=== PATIENT | female | born 1980 ===

== ENCOUNTER → 2016-10-22 | Outpatient (CLI) | payer OTHER ==
[2016-04-16 18:55] VITALS: BP 123/57
[~2016-10-22] MED LIST: AMBIEN10 MG PO; CELEXA 20MG20 MG/TA1 PO; FORTAMET1000 M1 PO; PHENERGAN 25 TA25 MG PO
== END ==
LOC: RAD 10:02 → LAB 10:02
DX: R73.09 Other abnormal glucose (principal)

== ENCOUNTER → 2016-11-01 | Outpatient (CLI) | payer OTHER ==
[2016-04-16 18:55] VITALS: BP 123/57
== END ==
LOC: RAD 15:57
DX: E11.9 Type 2 diabetes mellitus without complications (principal); E04.9 Nontoxic goiter, unspecified; Z87.898 Personal history of other specified conditions

== ENCOUNTER → 2017-01-29 | Outpatient (CLI) | payer OTHER ==
[2016-04-16 18:55] VITALS: BP 123/57
== END ==
LOC: LAB 17:11
DX: E11.9 Type 2 diabetes mellitus without complications (principal)

== ENCOUNTER → 2017-02-20 | Outpatient (CLI) | payer OTHER ==
[2016-04-16 18:55] VITALS: BP 123/57
== END ==
LOC: LAB 15:51
DX: R74.8 Abnormal levels of other serum enzymes (principal); R10.817 Generalized abdominal tenderness; K76.0 Fatty (change of) liver, not elsewhere classified

== ENCOUNTER → 2017-03-07 | Outpatient (CLI) | payer OTHER ==
[2016-04-16 18:55] VITALS: BP 123/57
== END ==
LOC: LAB 07:10
DX: R10.9 Unspecified abdominal pain (principal); R74.8 Abnormal levels of other serum enzymes

== ENCOUNTER 2017-06-25 07:44 | Emergency (ER) | payer OTHER ==
[~2017-06-25] VITALS: Ht 157.5 cm; Wt 90.0 kg
[2017-06-25 08:48] LABS: HEMATOCRIT 40.7 % (37.0-47.0); HEMOGLOBIN 11.9 g/dL (12.5-16.0); MEAN CELL VOLUME 73 fl (78-100); MEAN PLATELET VOLUME 10.6 fl (7.4-10.4); PLATELET COUNT 249 K/mm3 (130-400); RED BLOOD COUNT 5.61 M/mm3 (4.10-5.30); RED CELL DISTRIBUTION WIDTH 15.9 % (11.5-14.5); WHITE BLOOD COUNT 6.9 K/mm3 (4.8-10.8)
[2017-06-25 08:54] LABS: ALBUMIN 3.9 g/dL (3.5-5.0); BUN/CREATININE RATIO 18.3 (6.0-26.0); CALCIUM 9.3 mg/dL (8.4-10.2); POTASSIUM 4.2 mmol/L (3.6-5.0); TOTAL BILIRUBIN 0.2 mg/dL (0.2-1.3); TOTAL PROTEIN 7.3 g/dL (6.3-8.2)
[2017-06-25 08:55] LABS: MEAN CORPUSCULAR HEMOGLOBIN 21 pg (27-31); MEAN CORPUSCULAR HGB CONC 29 g/dL (33-37)
[2017-06-25 08:56] LABS: LYMPHOCYTE 30 % (20-51); MONOCYTE 9 % (3-10); NEUTROPHILS 61 % (42-75)
[2017-06-25 08:57] LABS: TARGET CELLS 1+
[2017-06-25 11:51] LABS: URINE APPEARANCE CLEAR; URINE BILIRUBIN NEGATIVE (NEGATIVE); URINE BLOOD NEGATIVE (NEGATIVE); URINE COLOR YELLOW; URINE GLUCOSE NEGATIVE (NEGATIVE); URINE KETONE NEGATIVE (NEGATIVE); URINE LEUKOCYTE ESTERASE NEGATIVE (NEGATIVE); URINE NITRATE NEGATIVE (NEGATIVE); URINE PROTEIN(semi-quant) TRACE mg/dL (NEGATIVE); URINE UROBILINOGEN NORMAL (NORMAL)
[2017-06-25 12:07] VITALS: BP 144/87
== END 2017-06-25 12:07 | disposition home or self-care (01) ==
LOC: ED 07:44
PROVIDERS: Nurse Practitioner
DX: R10.12 Left upper quadrant pain (principal); R07.9 Chest pain, unspecified; S80.02XA Contusion of left knee, initial encounter; V43.52XA Car driver injured in collision with other type car in traffic accident, initial encounter; Y92.410 Unspecified street and highway as the place of occurrence of the external cause; E11.9 Type 2 diabetes mellitus without complications; Z79.84 Long term (current) use of oral hypoglycemic drugs; I10 Essential (primary) hypertension
CPT/HCPCS: L0120; Q9967

== ENCOUNTER → 2017-07-31 | Outpatient (CLI) | payer OTHER ==
[2017-07-31 17:19] LABS: DIRECT BILIRUBIN 0.1 mg/dL (0.0-0.4); TOTAL BILIRUBIN 0.1 mg/dL (0.2-1.3); TOTAL PROTEIN 7.5 g/dL (6.3-8.2)
== END ==
LOC: LAB 16:42
PROVIDERS: Family Medicine
DX: R10.13 Epigastric pain (principal); K21.9 Gastro-esophageal reflux disease without esophagitis; K76.0 Fatty (change of) liver, not elsewhere classified; E11.9 Type 2 diabetes mellitus without complications

== ENCOUNTER → 2017-10-24 | Outpatient (CLI) | payer OTHER | LOC: LAB 16:28 | DX: E11.9 Type 2 diabetes mellitus without complications (principal); K76.0 Fatty (change of) liver, not elsewhere classified ==

== ENCOUNTER → 2018-06-29 | Outpatient (CLI) | payer SELFPAY | LOC: LAB 13:23 | DX: E11.9 Type 2 diabetes mellitus without complications (principal) ==

== ENCOUNTER → 2018-07-06 | Outpatient (CLI) | payer SELFPAY ==
[2018-07-06 15:38] LABS: ALBUMIN 4.2 g/dL (3.5-5.0); CALCIUM 9.2 mg/dL (8.4-10.2); POTASSIUM 4.3 mmol/L (3.6-5.0); TOTAL BILIRUBIN 0.3 mg/dL (0.2-1.3); TOTAL PROTEIN 7.3 g/dL (6.3-8.2)
== END ==
LOC: LAB 15:02
PROVIDERS: Family Medicine
DX: E11.9 Type 2 diabetes mellitus without complications (principal); R10.31 Right lower quadrant pain

== ENCOUNTER → 2019-10-07 | Outpatient (CLI) | payer BC ==
[2019-10-07 17:05] LABS: HEMATOCRIT 43.1 % (37.0-47.0); HEMOGLOBIN 12.8 g/dL (12.5-16.0); MEAN PLATELET VOLUME 10.6 fl (7.4-10.4); RED BLOOD COUNT 5.44 M/mm3 (4.10-5.30); RED CELL DISTRIBUTION WIDTH 15.1 % (11.5-14.5); WHITE BLOOD COUNT 8.8 K/mm3 (4.8-10.8)
[2019-10-07 17:11] LABS: ALBUMIN 4.1 g/dL (3.5-5.0)
[2019-10-07 17:12] LABS: POTASSIUM 4.6 mmol/L (3.5-5.1)
[2019-10-07 17:13] LABS: CALCIUM 9.4 mg/dL (8.3-10.5)
[2019-10-07 17:14] LABS: TOTAL PROTEIN 7.2 g/dL (6.4-8.3)
[2019-10-07 17:16] LABS: TOTAL BILIRUBIN 0.2 mg/dL (0.2-1.2)
== END ==
LOC: LAB 16:44
PROVIDERS: Family Medicine
DX: Z00.00 Encounter for general adult medical examination without abnormal findings (principal); E11.9 Type 2 diabetes mellitus without complications; F41.3 Other mixed anxiety disorders; K76.0 Fatty (change of) liver, not elsewhere classified; R22.9 Localized swelling, mass and lump, unspecified; M79.671 Pain in right foot

== ENCOUNTER → 2019-12-03 | Outpatient (CLI) | payer BC | LOC: LAB 14:02 | DX: R05 Cough (principal); R53.83 Other fatigue; Z20.828 Contact with and (suspected) exposure to other viral communicable diseases ==

== ENCOUNTER → 2020-01-06 | Outpatient (CLI) | payer BC | LOC: LAB 12:36 | DX: E11.9 Type 2 diabetes mellitus without complications (principal) ==

== ENCOUNTER → 2020-01-19 | Outpatient (CLI) | payer BC ==
[2020-01-19 12:53] LABS: EOS # 0.2 (0.04-0.40); EOS % 1.5 % (1.0-5.0); HEMATOCRIT 42.3 % (37.0-47.0); HEMOGLOBIN 12.9 g/dL (12.5-16.0); LYMPH# 2.9 (1.50-4.00); MEAN CELL VOLUME 79 fl (78-100); MEAN CORPUSCULAR HGB CONC 31 g/dL (33-37); MONO # 0.9 (0.20-0.80); NEU # 5.8 (1.40-6.50); PLATELET COUNT 267 K/mm3 (130-400); RED BLOOD COUNT 5.34 M/mm3 (4.10-5.30); RED CELL DISTRIBUTION WIDTH 14.8 % (11.5-14.5); WHITE BLOOD COUNT 9.7 K/mm3 (4.8-10.8)
[2020-01-19 13:37] LABS: MEAN CORPUSCULAR HEMOGLOBIN 24 pg (27-31)
[2020-01-19 13:58] LABS: ERYTHROCYTE SEDIMENTATION RATE 20 mm/hr (0-20)
== END ==
LOC: LAB 12:40
PROVIDERS: Family Medicine
DX: E11.9 Type 2 diabetes mellitus without complications (principal); J30.1 Allergic rhinitis due to pollen; R10.31 Right lower quadrant pain

== ENCOUNTER → 2020-04-03 | Outpatient (CLI) | payer BC | LOC: LAB 12:17 | DX: F32.9 Major depressive disorder, single episode, unspecified (principal); G47.9 Sleep disorder, unspecified ==

== ENCOUNTER → 2020-05-15 | Outpatient (CLI) | payer BC | LOC: LAB 14:36 | DX: E11.9 Type 2 diabetes mellitus without complications (principal) ==

== ENCOUNTER → 2020-08-16 | Outpatient (CLI) | payer BC ==
[2020-08-16 12:15] LABS: POTASSIUM 4.4 mmol/L (3.5-5.1)
[2020-08-16 12:16] LABS: CALCIUM 9.5 mg/dL (8.3-10.5)
[2020-08-16 12:17] LABS: TOTAL PROTEIN 7.1 g/dL (6.4-8.3)
[2020-08-16 12:19] LABS: TOTAL BILIRUBIN 0.4 mg/dL (0.2-1.2)
== END ==
LOC: LAB 10:12
PROVIDERS: Family Medicine
DX: K76.0 Fatty (change of) liver, not elsewhere classified (principal); E11.9 Type 2 diabetes mellitus without complications; E55.9 Vitamin D deficiency, unspecified

== ENCOUNTER → 2020-11-01 | Outpatient (CLI) | payer BC | LOC: RAD 12:30 | DX: S19.9XXA Unspecified injury of neck, initial encounter (principal) ==

== ENCOUNTER → 2020-11-22 | Outpatient (CLI) | payer BC | LOC: LAB 12:52 | DX: E11.9 Type 2 diabetes mellitus without complications (principal) ==

== ENCOUNTER → 2021-01-04 | Outpatient (CLI) | payer BC | LOC: LAB 13:37 → RAD 13:37 | DX: E11.9 Type 2 diabetes mellitus without complications (principal); R22.30 Localized swelling, mass and lump, unspecified upper limb ==

== ENCOUNTER → 2021-06-05 | Outpatient (CLI) | payer MEDICAID | LOC: MAMMO 05-30 11:30 | DX: Z12.31 Encounter for screening mammogram for malignant neoplasm of breast (principal); Z80.3 Family history of malignant neoplasm of breast ==

== ENCOUNTER → 2021-06-27 | Outpatient (CLI) | payer MEDICAID ==
[2021-06-27 11:00] LABS: POTASSIUM 4.8 mmol/L (3.5-5.1)
[2021-06-27 11:01] LABS: CALCIUM 9.5 mg/dL (8.3-10.5)
[2021-06-27 11:02] LABS: TOTAL PROTEIN 7.2 g/dL (6.4-8.3)
[2021-06-27 11:04] LABS: TOTAL BILIRUBIN 0.3 mg/dL (0.2-1.2)
[2021-06-27 11:08] LABS: MAGNESIUM 2.05 mg/dL (1.60-2.60)
== END ==
LOC: LAB 10:25
PROVIDERS: Family Medicine
DX: E11.9 Type 2 diabetes mellitus without complications (principal); E55.9 Vitamin D deficiency, unspecified

== ENCOUNTER → 2022-01-09 | Outpatient (CLI) | payer MEDICAID | LOC: LAB 16:23 | DX: K44.9 Diaphragmatic hernia without obstruction or gangrene (principal); K29.70 Gastritis, unspecified, without bleeding; D50.9 Iron deficiency anemia, unspecified; E55.9 Vitamin D deficiency, unspecified; E11.9 Type 2 diabetes mellitus without complications ==

== ENCOUNTER → 2022-01-17 | Outpatient (CLI) | payer MEDICAID ==
[2022-01-17 09:12] LABS: HEMATOCRIT 40.2 % (37.0-47.0); HEMOGLOBIN 12.1 g/dL (12.5-16.0); MEAN PLATELET VOLUME 10.2 fl (7.4-10.4); RED BLOOD COUNT 5.14 M/mm3 (4.10-5.30); RED CELL DISTRIBUTION WIDTH 16.5 % (11.5-14.5); WHITE BLOOD COUNT 5.8 K/mm3 (4.8-10.8)
[2022-01-21 12:48] LABS: HEMOGLOBIN A 97.5 % (())
[2022-01-22 14:56] LABS: HGB F RBC DISTRIBUTION NP]
== END ==
LOC: LAB 08:49
PROVIDERS: Family Medicine
DX: D50.9 Iron deficiency anemia, unspecified (principal); J06.9 Acute upper respiratory infection, unspecified

== ENCOUNTER → 2023-08-13 | Outpatient (CLI) | payer BC ==
[2023-08-13 14:24] LABS: HEMATOCRIT 45.4 % (37.0-47.0); HEMOGLOBIN 14.3 g/dL (12.5-16.0); MEAN PLATELET VOLUME 10.2 fl (7.4-10.4); RED BLOOD COUNT 5.35 M/mm3 (4.10-5.30); RED CELL DISTRIBUTION WIDTH 12.9 % (11.5-14.5); WHITE BLOOD COUNT 7.3 K/mm3 (4.8-10.8)
[2023-08-13 14:30] LABS: ALBUMIN 4.1 g/dL (3.5-5.0)
[2023-08-13 14:34] LABS: TOTAL BILIRUBIN 0.3 mg/dL (0.2-1.2)
== END ==
LOC: LAB 13:59
PROVIDERS: Family Medicine
DX: Z01.818 Encounter for other preprocedural examination (principal)

== ENCOUNTER → 2023-11-21 | Outpatient (CLI) | payer BC | LOC: LAB 09:49 | DX: E55.9 Vitamin D deficiency, unspecified (principal) ==

== ENCOUNTER → 2024-01-07 | Outpatient (CLI) | payer BC ==
[2024-01-08 15:40] LABS: ANA SCREEN with REFLEX Negative (Negative)
== END ==
LOC: LAB 16:18
PROVIDERS: Family Medicine
DX: R21 Rash and other nonspecific skin eruption (principal); M54.50 Low back pain, unspecified

== ENCOUNTER → 2024-02-05 | Outpatient (CLI) | payer BC | LOC: LAB 08:43 | DX: E11.9 Type 2 diabetes mellitus without complications (principal) ==

== ENCOUNTER → 2024-08-06 | Outpatient (CLI) | payer BC ==
[2024-08-06 14:56] LABS: BASO # 0.02 K/mm3 (0.02-0.10); EOS # 0.09 K/mm3 (0.04-0.40); EOS % 1.1 % (1.0-5.0); HEMATOCRIT 41.5 % (37.0-47.0); HEMOGLOBIN 12.9 g/dL (12.5-16.0); MEAN CELL VOLUME 88 fl (78-100); MEAN CORPUSCULAR HEMOGLOBIN 27 pg (27-31); MEAN CORPUSCULAR HGB CONC 31 g/dL (33-37); MONO # 0.51 K/mm3 (0.20-0.80); NEU # 4.18 K/mm3 (1.40-6.50); PLATELET COUNT 212 K/mm3 (130-400); RED BLOOD COUNT 4.72 M/mm3 (4.10-5.30); RED CELL DISTRIBUTION WIDTH 14.1 % (11.5-14.5); WHITE BLOOD COUNT 7.9 K/mm3 (4.8-10.8)
[2024-08-06 15:01] LABS: TOTAL BILIRUBIN 0.3 mg/dL (0.2-1.2)
[2024-08-06 15:30] LABS: PARTIAL THROMBOPLASTIN TIME 25.2 SECONDS (21.0-32.0); PROTHROMBIN TIME 9.4 SECONDS (9.0-12.0)
== END ==
LOC: LAB 14:26
PROVIDERS: Physician Assistant
DX: R58 Hemorrhage, not elsewhere classified (principal); E11.9 Type 2 diabetes mellitus without complications; K90.9 Intestinal malabsorption, unspecified